=== PATIENT | male | born 1945 | race Caucasian/White ===

== ENCOUNTER 2020-12-25 09:23 | Day surgery (SDC) | payer MEDICARE, OTHER ==
--- NOTE | 2020-12-22 11:26 | PCM.PREANE ---
Preanesthetic Assessment - Procedure Proposed Procedure: Right Reverse Total Shoulder Arthroplasty - Anesthesia/Transfusion/Family Hx Anesthesia History: Prior Anesthesia Without Reaction Family History of Anesthesia Reaction: No Transfusion History: No Prior Transfusion(s) Intubation History: Unknown - Review of Systems General: No Symptoms Pulmonary: No Symptoms (Asthma-last used inhaler 2 months ago/acute broncitis/cough, ETOH: rarely) Cardiovascular: No Symptoms (Irregular HR with frequent pac's noted on EKG, elevated lipids) Gastrointestinal: No Symptoms Neurological: No Symptoms Other: Reports: None (prostate cancer: in remission for 2 years.), Easy Bruising, Thyroid Problems (hypothyroid), Sinus Problem (History of septal sinus surgery) - Physical Assessment NPO Status Date: 12/24/20 NPO Status Time: 23:59 Vital Signs: HR: 70 Sat: 97% Temp: 97.6 B/P: 155/90 Resp: 16 Height: 1.75 m Weight: 97 kg ASA Class: 3 Mental Status: Alert & Oriented x3 Airway Class: Mallampati = 2 Dentition: Reports: Normal Dentition, Adin(s), Caries Thyro-Mental Finger Breadths: 3 Mouth Opening Finger Breadths: 3 ROM/Head Extension: Full Lungs: Clear to Auscultation, Normal Respiratory Effort Cardiovascular: Regular Rate, Regular Rhythm, No Murmurs - Lab Values: All labs reviewed and noted and within acceptable ranges to proceed with scheduled procedure. - Imaging/EKG Impressions: EKG: SR rate= 71, multiple PAC's, RBBB, Twave inversion V3. CXR: negative - Allergies Allergies/Adverse Reactions: Allergies Allergy/AdvReac Type Severity Reaction Status Date / Time No Known Allergies Allergy Verified 12/22/20 14:59 - Anesthesia Plan Pre-Op Medication Ordered: Other (Preoperative oral meds: lyrica, tylenol, oxycontin all @: 1111) - Acknowledgements Anesthesia Type Planned: General Anesthesia ([facility] ISB under US guidance for post operative pain control requested by Dr. Alcocer.) Pt an Appropriate Candidate for the Planned Anesthesia: Yes Alternatives and Risks of Anesthesia Discussed w Pt/Guardian: Yes Pt/Guardian Understands and Agrees with Anesthesia Plan: Yes PreAnesthesia Questionnaire - HOME MEDS Home Medications: Home Meds Albuterol Sulfate [Albuterol Sulfate Hfa] 1 - 2 puff INH Q4H 12/22/20 [History] Calcium Carb/Vitamin D3/Vit K1 [Calcium + D Soft Chewable Tab] 1 tab PO BID 12/22/20 [History] Cholecalciferol (Vitamin D3) [Vitamin D3] 5,000 unit PO DAILY 12/22/20 [History] Cortisol Horticulture Supervisor 1 dose PO DAILY 12/22/20 [History] Cranberry Fruit Extract [Cranberry] 400 mg PO BID 12/22/20 [History] Ferrous Sulfate [Iron] 325 mg PO DAILY 12/22/20 [History] Levothyroxine 25 mcg PO DAILY 12/22/20 [History] Pregnenolone, Micronized [Pregnenolone] 100 mg PO BID 12/22/20 [History] [place] 2 cap PO BID 12/22/20 [History] Testosterone Cypionate [Testone Cik] 1 dose TOP DAILY 12/22/20 [History] Triamcinolone Acetonide [Nasacort] 1 dose NASBOTH DAILY 12/22/20 [History] Aspirin [Aspirin EC] 325 mg PO DAILY #30 tablet. 12/25/20 [Rx] Cyclobenzaprine [Flexeril] 10 mg PO BID PRN #20 tab 12/25/20 [Rx] oxyCODONE 5 - 10 mg PO Q4H PRN #30 tab 12/25/20 [Rx] - CURRENT (IN HOUSE) MEDS Current Meds: Current Medications Lactated Ringer's (Ringers, Lactated) 1,000 mls @ 125 mls/hr IV ASDIRECTED NEGRITO Stop: 12/25/20 23:00 Lidocaine/Sodium Bicarbonate (Lidocaine 1%/Sod Bicarbonate In Ns 8.4% 1 Ml Syringe) 0.25 ml IDERM ONETIME PRN PRN Reason: Prior to IV Start Stop: 12/25/20 18:00 Sodium Chloride (Sodium Chloride 0.9% 10 Ml Syringe) 10 ml FLUSH ASDIRECTED PRN PRN Reason: Keep Vein Open Stop: 12/25/20 18:00
--- NOTE | 2020-12-22 11:28 | PCM.SN.2 ---
- Free Text/Narrative Note: Date: 12/25/2020 Time Out: 1054 Start: 1054 Stop: 1107 Current Procedure: Right interscalene block under US guidance for postoperative pain control requested by Dr. Alcocer. Patient chart reviewed, risk/benefits discussed with patient, consent obtained. Patient positioned supine, monitors/alarms on, oxygen placed via nasal cannula at 2 LPM. IV sedation administered: Versed 2mg IV, Fentanyl 50 mcg IV given in preop prior to block placement. Right shoulder prepped with two chloropreps. Sterile drapes placed with aseptic technique noted. Under US guidance, right subclavian artery visualized along with the right brachial plexus. Plexus followed up to C6 cricoid level, and area localized with 2mls of 1% lidocaine. 22gauge 2 inch stimiplex needle advanced under US with 0.6mV with stimulation of biceps noted. Good stimulation noted with decreased voltage and absent at 0.3mVs. 1ml of Normal Saline injected with loss of stimulation noted to confirm needle not placed intraneurally. Incremental dosing of 5mls with negative aspiration noted prior to each injection of 0.5% ropivacaine with 1:200,000 epinephrine. Total volume=30mls. Please refer to nurses noted for vital signs. Majo Cuellar CRNA Time Documentation
[~2020-12-25 09:23] MED LIST: Acetaminophen 325 MG Tab PO SCH; Lactated Ringers 1,000 ML IV SCH; Lidocaine 1%/Sod Bicarbonate in NS 8.4% 1 ML Syringe IDERM PRN; Pregabalin 25 MG Cap PO SCH; Sodium Chloride 0.9% 10 ML Syringe FLUSH PRN; oxyCODONE ER 10 MG TAB.ER PO SCH
[2020-12-25] MEDS ORDERED: Lidocaine 1% 2 ML ONE (10:31)
[2020-12-25] MEDS ORDERED: EPINEPHrine 1 MG/ML SDV ONE (10:32)
[2020-12-25] MEDS ORDERED: Ropivacaine 0.5% 5 MG/ML 30 ML SDV ONE (10:32)
[2020-12-25] MEDS ORDERED: Midazolam 1 MG/ML 2 ML SDV ONE (10:51)
[2020-12-25] MEDS ORDERED: fentaNYL 100 MCG/2 ML SDV ONE (10:51)
[2020-12-25] MEDS ORDERED: Propofol 200 MG/20 ML SDV ONE ×3 (11:16→14:25)
[2020-12-25] MEDS ORDERED: Lidocaine 1% 0 ML ONE (11:17)
[2020-12-25] MEDS ORDERED: Rocuronium 50 MG/5 ML Vial ONE ×2 (11:19→12:04)
[2020-12-25] MEDS ORDERED: Ondansetron 4 MG/2 ML SDV ONE ×2 (11:19→12:04)
[2020-12-25] MEDS ORDERED: ceFAZolin 1 GM Vial ONE ×2 (11:20→12:07)
[2020-12-25] MEDS ORDERED: Dexamethasone 4 MG/ML 5 ML MDV ONE (12:04)
[2020-12-25] MEDS ORDERED: Lactated Ringers 1,000 ML ONE (12:14)
[2020-12-25] MEDS ORDERED: Bupivacaine 0.25% 10 ML SDV ONE (12:27)
[2020-12-25] MEDS ORDERED: Vancomycin 1 GM SDV ONE (12:27)
[2020-12-25] MEDS ORDERED: Ketorolac 30 MG/ML SDV ONE (14:17)
--- NOTE | 2020-12-25 14:28 | CR ---
Right shoulder: 3 views of the right shoulder were obtained utilizing C-arm device. Study was obtained in the operating room. Comparison: Prior right shoulder radiographic study of 05/05/20. Study shows placement of a reverse shoulder prosthesis. Fluoroscopy time is given as 3.9 seconds. Impression: 1. Procedural study as described above. Diagnostic code #2
--- NOTE | 2020-12-25 14:54 | PCM.POSTAN ---
POST ANESTHESIA ASSESSMENT - MENTAL STATUS Mental Status: Alert - VITAL SIGNS Vital Signs: Last Vital Signs 1444 141/79 99 -2 L 95 13 98.1 Temp 36.6 C 12/25/20 09:45 Pulse 78 12/25/20 09:45 Resp 16 12/25/20 09:45 BP 130/90 12/25/20 09:45 Pulse Ox 95 12/25/20 09:45 - RESPIRATORY Respiratory Status: Respiratory Rate WNL, Airway Patent, O2 Saturation Stable, Supplemental Oxygen - CARDIOVASCULAR CV Status: Pulse Rate WNL, Blood Pressure Stable - GASTROINTESTINAL GI Status: No Symptoms - PAIN Pain Score: 0 - POST OP HYDRATION Hydration Status: Adequate & Stable
--- NOTE | 2020-12-25 16:19 | CR ---
Right shoulder: AP view of the right shoulder was obtained. Comparison: Prior operative shoulder study performed earlier on the same day (1:59 PM) Reverse shoulder prosthesis is seen. Components are aligned. Slight soft tissue edema is seen. Joint space narrowing is noted within the acromioclavicular joint. No acute osseous abnormality is seen. Impression: 1. Satisfactory radiographic appearance of recently placed right shoulder prosthesis. Diagnostic code #2
--- NOTE | 2021-01-08 10:22 | PCM.OPNOTE ---
- General Post-Op/Procedure Note Date of Surgery/Procedure: 12/25/20 Operative Procedure(s): right reverse total shoulder arthroplasty Pre Op Diagnosis: right shouler rotator cuff tear arthropathy Post-Op Diagnosis: Same Anesthesia Technique: General ET Tube, Regional Block Primary Surgeon: Natalio Alcocer Anesthesia Provider: Dinorah Carter Wash And Greaser: Vandana Mcclelland Wash And Greaser: Vianey Lam EBL in mLs: 300 Complications: None Condition: Good Free Text/Narrative:: 19 stem 36+2 glenosphere 4mm poly 28 baseplate
--- NOTE | 2021-01-09 09:56 | OR ---
DATE OF OPERATION: 12/25/2020 SURGEON: Natalio Alcocer MD OPERATION PERFORMED: Right reverse total shoulder arthroplasty. PREOPERATIVE DIAGNOSIS: Right shoulder rotator cuff tear arthropathy. POSTOPERATIVE DIAGNOSIS: Right shoulder rotator cuff tear arthropathy. ANESTHESIA: Technique: General endotracheal intubation with regional interscalene block. ANESTHESIA PROVIDER: Twan Lee. ASSISTANTS: Vandana Mcclelland PA-C; and Vianey Lam LPN. ESTIMATED BLOOD LOSS: 300 mL. COMPLICATIONS: None. CONDITION: Stable. IMPLANTS: 1. Renata size 19 reverse humeral stem. 2. Renata size 36, +2 glenosphere. 3. [place] size 4 mm polyethylene. 4. [place] size 28 mm concentric base plate. DESCRIPTION OF PROCEDURE: The patient was identified in the preoperative holding area. Proper site was marked and identified by the surgeon. The patient was taken back to the operating theater where after adequate anesthesia, the patient's right upper extremity was sterilely prepped and draped in the usual sterile fashion. OR time-out was performed. Patient received 2 g IV Ancef. The patient was placed in a reverse Trendelenburg position. Standard deltopectoral incision was made. This was taken down to cephalic vein. Cephalic vein was identified and was retracted laterally with the deltoid. The clavipectoral fascia was then incised. A retractor was used to retract the conjoined tendon medially. Anterior humeral circumflex vessels were ligated. Biceps tendon was identified and #2 FiberWire was used for biceps tenodesis within the subpectoralis region. Biceps to this was then cut and was taken all the way back to the level of the glenoid. Peel down of the subscapularis then was undertaken and the humeral head was dislocated. The humeral head cut was then completed and found to be adequate. All spurs were removed. Anterior and posterior glenoid retractors were placed. Circumferential removal of the labrum as well as partial capsulectomy was then performed. Guide pin was then placed in a center-center position with roughly 5 degrees inferior tilt. The 28 mm concentric reamer was then utilized and the 28 mm concentric base plate was placed with a central compression screw and was found to have adequate purchase. Inferior and superior locking screws were then placed in divergent fashion and a 36, +2 glenosphere was impacted into place. Attention was turned to the humerus. Starter awl was placed down the canal. Starting with a 17 broach, I was able to broach up to a 19, which was found to be rotationally and vertically stable. Calcar planer was then utilized and trial implants with 4 mm poly for a total of 6 mm construct was placed. At this time, it was reduced. There was no over- tensioning of the deltoid or the conjoined tendon. C-arm fluoroscopy showed all parts to be in proper position and in anatomic position. The shoulder was then dislocated. Trial implants were removed. A 19 stem was opened on the back table and the 36, +4 mm liner was impacted into place. This was then impacted into the humerus and the humerus was relocated. C-arm fluoroscopy was again utilized and showed the well-seated components and no signs of fracture. 1 L pulse lavage irrigation with Ancef was irrigated through the shoulder along with 400 mL of IrriSept irrigation. Topical tranexamic acid and vancomycin powder were applied. 2-0 Vicryl was used subcutaneously, and Prineo was used for skin closure. The patient tolerated the procedure well and was sent to PACU in stable condition in a pillow sling. ANETTE /[id number]
== END 2020-12-25 16:15 | disposition home or self-care (01) ==
LOC: JD.SDS 09:23
PROVIDERS: ATTEND Orthopaedic Surgery
DX: M19.011 Primary osteoarthritis, right shoulder (principal); M75.101 Unspecified rotator cuff tear or rupture of right shoulder, not specified as traumatic; R05.9 Cough, unspecified; M19.012 Primary osteoarthritis, left shoulder; F41.9 Anxiety disorder, unspecified; F32.A Depression, unspecified; E78.5 Hyperlipidemia, unspecified; E29.1 Testicular hypofunction; E03.9 Hypothyroidism, unspecified; Z79.899 Other long term (current) drug therapy; Z79.890 Hormone replacement therapy; Z98.890 Other specified postprocedural states; G89.18 Other acute postprocedural pain
CPT/HCPCS: 23472; 73020; 76000; 97110; 97161; A9270; C1713; C1769; C1776; J0171; J0690; J1100; J1885; J2250; J2405; J2704; J2710; J2795; J3010; J3370; J3490; J7120; 01638; 64415; 76942; 99100

== ENCOUNTER 2023-08-05 06:48 | Day surgery (SDC) | payer MEDICARE, OTHER ==
[~2023-08-05 06:48] MED LIST changes: -Acetaminophen 325 MG Tab PO SCH; -Lactated Ringers 1,000 ML IV SCH; -Lidocaine 1%/Sod Bicarbonate in NS 8.4% 1 ML Syringe IDERM PRN; -Pregabalin 25 MG Cap PO SCH; +Sodium Chloride 0.9% 10 ML Syringe FLUSH SCH; -oxyCODONE ER 10 MG TAB.ER PO SCH
[2023-08-05] MEDS: Lactated Ringers 1,000 ML IV SCH (06:55)
[2023-08-05] MEDS ORDERED: Lidocaine 1% 4 ML ONE (07:44)
[2023-08-05] MEDS ORDERED: fentaNYL 100 MCG/2 ML SDV ONE (07:44)
[2023-08-05] MEDS ORDERED: Propofol 200 MG/20 ML SDV ONE ×2 (07:44)
== END 2023-08-05 10:15 ==
LOC: JD.SDS 06:48
PROVIDERS: ATTEND Surgery
DX: Z12.11 Encounter for screening for malignant neoplasm of colon (principal); D12.0 Benign neoplasm of cecum; D12.2 Benign neoplasm of ascending colon; D12.4 Benign neoplasm of descending colon; D12.5 Benign neoplasm of sigmoid colon; K64.8 Other hemorrhoids; F41.9 Anxiety disorder, unspecified; F32.A Depression, unspecified; E78.5 Hyperlipidemia, unspecified; E03.9 Hypothyroidism, unspecified; Z79.890 Hormone replacement therapy; Z79.899 Other long term (current) drug therapy
CPT/HCPCS: 45380; 45385; J1596; J2704; J3010; J7120; 00811; 99100; J3490

== ENCOUNTER 2025-01-15 18:04 | Emergency (ER) | payer MEDICARE, OTHER | END 2025-01-15 19:00 | disposition home or self-care (01) | LOC: JD.ED 18:04 | DX: S92.414A Nondisplaced fracture of proximal phalanx of right great toe, initial encounter for closed fracture (principal); S42.292A Other displaced fracture of upper end of left humerus, initial encounter for closed fracture; Z79.899 Other long term (current) drug therapy; W19.XXXA Unspecified fall, initial encounter | CPT/HCPCS: 73030-26-LT; 73030-LT; 73660-26-T5; 73660-T5; 99284 ==